=== PATIENT | female | born 1960 | race Caucasian/White ===

== ENCOUNTER → 2018-12-29 12:19 | Outpatient (CLI) | payer OTHER, SELFPAY ==
--- NOTE | 2018-12-29 | DI.RAD.S_ITS ---
PROCEDURE: XR LUMBAR SPINE 2-3V INDICATIONS: low back pain TECHNIQUE: 2 views of the lumbar spine were acquired. COMPARISON: None. FINDINGS: Bones: 5 [id number] vertebrae are present. There is normal bony alignment. No vertebral body compression fractures. Mild degenerative endplate changes and bilateral facet arthrosis throughout lumbar spine is seen. No suspicious bony lesions. Soft tissues: Overlying bowel gas pattern is normal. No suspicious soft tissue calcifications. 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 No compression fracture or spondylolisthesis. Dictated by: Berry Vivas M.D. on 12/29/2018 at 14:11 Approved by: Berry Vivas M.D. on 12/29/2018 at 14:12
== END ==
DX: M54.5 Low back pain (principal); M51.36 Other intervertebral disc degeneration, lumbar region
CPT/HCPCS: 72100